=== PATIENT | female | born 1955 | race Caucasian/White ===

== ENCOUNTER 2018-03-25 06:55 | Inpatient (IN) ==
--- NOTE | 2018-03-24 20:12 | Discharge Summary ---
<JustinGisele colesBre L - Last Filed: 03/24/18 21:14> Date of Encounter: 03/24/18 - Discharge Diagnosis (1) Status post total knee replacement, left Priority: Primary Status: Acute (2) Arthritis of knee, left Priority: Primary Status: Acute (3) HTN (hypertension) Priority: Secondary Status: Chronic Qualifiers: Hypertension type: essential hypertension Qualified Code(s): I10 - Essential (primary) hypertension (4) DMII (diabetes mellitus, type 2) Priority: Secondary Status: Chronic Qualifiers: Diabetes mellitus assisted insulin use: unspecified assisted insulin use status Diabetes mellitus complication status: with unspecified complications Qualified Code(s): E11.8 - Type 2 diabetes mellitus with unspecified complications (5) CE (obstructive sleep apnea) Priority: Secondary Status: Chronic (6) CHF (congestive heart failure) Priority: Secondary Status: Chronic Qualifiers: Heart failure type: unspecified Heart failure chronicity: chronic Qualified Code(s): I50.9 - Heart failure, unspecified (7) COPD (chronic obstructive pulmonary disease) Priority: Secondary Status: Chronic Qualifiers: COPD type: unspecified COPD Qualified Code(s): J44.9 - Chronic obstructive pulmonary disease, unspecified (8) Obesity Priority: Secondary Status: Chronic Qualifiers: Obesity type: due to excess calories Obesity classification: adult class 3 (BMI >= 40) Serious obesity comorbidity presence: without serious comorbidity Body mass index: BMI 40.0-44.9 Qualified Code(s): E66.01 - Morbid (severe) obesity due to excess calories; Z68.41 - Body mass index (BMI) 40.0-44.9, adult (9) Codeine allergy Priority: Secondary Status: Chronic - Hospital Course Hospital course: Ms. Sharma is a 63 year old female - Time Spent with Patient Total time spent providing and/or coordinating discharge services: - Discharge Medications Home Medications: Aspirin Enteric Coated [Aspirin EC] 325 mg PO BID #20 tablet. 03/24/18 [Rx] OxyCODONE Immed Rel [Roxicodone 5 MG] 5 mg PO Q6HR PRN 7 Days #28 tablet [Rx] Albuterol Sulfate [Proventil Hfa] 2 puff IH Q4H 03/25/18 [History] Atorvastatin [Lipitor] 40 mg PO HS 03/25/18 [History] Carvedilol [Coreg] 25 mg PO BID 03/25/18 [History] Citalopram Hydrobromide [Citalopram HBr] 20 mg PO DAILY 03/25/18 [History] Doxycycline Hyclate 100 mg PO DAILY 03/25/18 [History] Ferrous Gluconate 324 mg PO QAM 03/25/18 [History] Furosemide [Lasix] 40 mg PO DAILY 03/25/18 [History] Ipratropium/Albuterol Sulfate [Iprat-Albut 0.5-3(2.5) mg/3 ml] 3 ml IH QID 03/25 [History] Lisinopril [Zestril] 20 mg PO DAILY 03/25/18 [History] Multivitamin [Multivitamins] 1 each PO DAILY 03/25/18 [History] Sitagliptin Phos/Metformin HCl [Janumet 50-1,000 mg Tablet] 1 tab PO DAILY 03/25 [History] Tramadol HCl [Ultram] 50 mg PO BID PRN 03/25/18 [History] Trazodone HCl 150 mg PO DAILY 03/25/18 [History] Triamcinolone Acetonide [Nasacort] 1 spray NS DAILY 03/25/18 [History] Zolpidem [Ambien] 10 mg PO HS PRN 03/25/18 [History] Allergies/Adverse Reactions: 3 Allergy/AdvReac Type Severity Reaction Status Date / Time codeine Allergy swelling Verified 03/25/18 09:12 Penicillins Allergy Swelling Verified 03/25/18 09:12 onabotulinumtoxinA AdvReac Nausea & Verified 03/25/18 09:12 [From Botox] vomiting Primary care physician: Acacia Davis MD - Patient Status Disposition: Home Health Service Condition: Good - Discharge Instructions Instructions: Total Knee Replacement (DC), Precautions after Total Joint Replacement Surgery (DC) Follow Up With: Acacia Davis MD [Primary Care Provider] - Americo Monroe MD [Partnered Physician] - Bre Zimmerman PAC [Physician Patient Portal Concierge] - Additional Instructions: Opsite dressing, leave intact until first post-operative visit. If dressing becomes >50% saturated, contact office, remove dressing and place appropriate dressing in its place. Do not allow for dressing to get wet. Zipline/Blake in place, plan to remove at post-operative day #14-16. Total Joint Precautions x 6 weeks Apply cold therapy wrap 3-6x/day for 20 minutes at a time. Encourage ambulation throughout the day Use Incentive spirometer 10x/hour. Elevate affected extremity above heart as tolerated. Brace: Wear knee immobilizer at night x 2 weeks. <Americo Monroe - Last Filed: 03/27/18 11:21> Orders not resulted at time of discharge: Pending orders 03/25/18 00:01 XR knee LT limited 1-2V [XR] Routine H/H [Hemoglobin and Hematocrit] [HEME] Routine Date of Encounter: 03/27/18 - Discharge Diagnosis (1) Obesity (BMI 35.0-39.9 without comorbidity) Priority: Secondary Status: Chronic (2) Arthritis of knee, left Priority: Primary Status: Chronic (3) Status post total knee replacement, left Priority: Primary Status: Acute (4) CHF (congestive heart failure) Priority: Secondary Status: Chronic Qualifiers: Heart failure type: diastolic Heart failure chronicity: chronic Qualified Code(s): I50.32 - Chronic diastolic (congestive) heart failure (5) COPD (chronic obstructive pulmonary disease) Priority: Secondary Status: Chronic Qualifiers: COPD type: unspecified COPD Qualified Code(s): J44.9 - Chronic obstructive pulmonary disease, unspecified (6) Codeine allergy Priority: Secondary Status: Chronic (7) DMII (diabetes mellitus, type 2) Priority: Secondary Status: Chronic Qualifiers: Diabetes mellitus assisted insulin use: unspecified rat exterminator insulin use status Diabetes mellitus complication status: with unspecified complications Qualified Code(s): E11.8 - Type 2 diabetes mellitus with unspecified complications (8) HTN (hypertension) Priority: Secondary Status: Chronic Qualifiers: Hypertension type: essential hypertension Qualified Code(s): I10 - Essential (primary) hypertension (9) CE (obstructive sleep apnea) Priority: Secondary Status: Chronic - Hospital Course Hospital course: Ms. Sharma is a 63 year old female - Time Spent with Patient Total time spent providing and/or coordinating discharge services: Primary care physician: Acacia Davis MD <Nel Peck - Last Filed: 03/27/18 17:41> Orders not resulted at time of discharge: Pending orders 03/25/18 09:10 US anesthesia pain block [US] Stat 03/25/18 12:31 US anesthesia pain block [US] Routine Date of Encounter: 03/27/18 Time of Encounter: 12:40 - Discharge Diagnosis (1) Status post total knee replacement, left Priority: Primary Status: Acute (2) Acute blood loss anemia Priority: Secondary Status: Acute (3) Arthritis of knee, left Priority: Primary Status: Chronic (4) CHF (congestive heart failure) Priority: Secondary Status: Chronic Qualifiers: Heart failure type: diastolic Heart failure chronicity: chronic Qualified Code(s): I50.32 - Chronic diastolic (congestive) heart failure (5) COPD (chronic obstructive pulmonary disease) Priority: Secondary Status: Chronic Qualifiers: COPD type: unspecified COPD Qualified Code(s): J44.9 - Chronic obstructive pulmonary disease, unspecified (6) Codeine allergy Priority: Secondary Status: Chronic (7) DMII (diabetes mellitus, type 2) Priority: Secondary Status: Chronic Qualifiers: Diabetes mellitus assisted insulin use: unspecified assisted insulin use status Diabetes mellitus complication status: with unspecified complications Qualified Code(s): E11.8 - Type 2 diabetes mellitus with unspecified complications (8) HTN (hypertension) Priority: Secondary Status: Chronic Qualifiers: Hypertension type: essential hypertension Qualified Code(s): I10 - Essential (primary) hypertension (9) CE (obstructive sleep apnea) Priority: Secondary Status: Chronic (10) Obesity (BMI 35.0-39.9 without comorbidity) Priority: Secondary Status: Chronic - Hospital Course Hospital course: Ms. Sharma is a 63 year old female s/p Left robotic-assisted Total knee replacement 03/25/18 with history of DMT2, HTN, CE, CHF, COPD, obesity who had uneventful hospital course. She participated in therapy and is stable for discharge. Patient seen at bedside, without complaints. A&O x 3 Afebrile, vital signs stable. dressings c/d/i. no calf tenderness to palpation. Labs reviewed. H/H - 8.8/26.9 asymptomatic Pain control: better with the addition of tylenol and flexeril yesterday. Participating in PT. All questions and concerns addressed. Educated on use of incentive spirometer. Encouraged ambulation and proper hydration. Patient educated on post-operative restrictions and post-operative care. Assessment and plan: Continue with postoperative care Discharge plan: home therapy DC today - Time Spent with Patient Total time spent providing and/or coordinating discharge services: Date of admission: 03/25/18 12:29 Primary care physician: Acacia Davis MD Consults: 03/25/18 12:31 Consult to Orthopedic Navigator [CONS] [CONS] Routine Consult to Physical Therapy [CONS] Routine Comment: Evaluate, develop and impliment POC Reason for Consult: post knee surgery Does patient have active BEDREST order?: No Is patient medically & hemodynamically stable?: Yes Consult to Earth Moving Machine Operator [CONS] Routine Reason for SW Consult: post op joint replacement RT Post Op Consult [CONS] Routine Discharging clinician: Americo Monroe Anticipated date of discharge: 03/27/18 Labs on day of discharge: Labs from last 24 hours 03/27/18 03/27/18 03/26/18 00:28 00:28 21:00 Hgb 8.7 L Hct 26.9 L Sodium 134 L Potassium 3.9 Chloride 101 Carbon Dioxide 26 BUN 16 Creatinine 0.91 Est GFR ( Amer) > 60 Est GFR (Non-Af Amer) > 60 BUN/Creatinine Ratio 18 Glucose 157 H POC Glucose 163 H Calculated Osmolality 282 Calcium 8.6 03/26/18 15:54 Hgb Hct Sodium Potassium Chloride Carbon Dioxide BUN Creatinine Est GFR ( Amer) Est GFR (Non-Af Amer) BUN/Creatinine Ratio Glucose POC Glucose 128 H Calculated Osmolality Calcium - Impressions ITS Impressions Knee X-Ray 03/25/18 00:01 IMPRESSION: 1. Left knee arthroplasty with no immediate complications. D/ / Anoop Escobar MD / Anoop Escobar MD Interpreting Provider: Anoop Escobar MD - Patient Status Functional capacity at discharge: uses cane/walker Overall status at discharge: patient is back to baseline - Diet and Activity Activity: as per physical therapy Diet: advance to your usual diet
--- NOTE | 2018-03-25 07:58 | History & Physical Report ---
Date of Encounter: 03/25/18 Time of Encounter: 07:58 24 Hour HP Update - Instructions Instructions: If the History and Physical is less than 30 days old and was completed prior to A.M. admission and or procedure and has NOT been updated on calendar day of procedure please complete this update prior to performing procedure. - Update Patient reports changes in Medical Condition: No Changes in examination, assessment, or condition: No Changes in Medication: No Preop tests/diagnostics Reviewed: Yes Surgery Remains Indicated: Yes Consent for Planned Operative Procedure(s) Verified: Yes - Pre-Operative Checklist Preoperative Checklist Indicated: No Prophylactic Antibiotic Ordered: Yes Is VTE Prophylaxis Indicated?: Yes
[2018-03-25] MEDS ORDERED: ROPIVACAINE HCL/PF 0.5% 30 ML VIAL ONE ×2 (08:06→08:51)
[2018-03-25] MEDS ORDERED: Clindamycin 900 MG/50 ML 900 MG/50 ML IV.SOLN IVPB ONE ×2 (08:12→09:28)
[2018-03-25] MEDS ORDERED: Albuterol 2.5 MG/3 ML NEBULIZER IH ONE (08:12)
[2018-03-25] MEDS ORDERED: *HR* Midazolam HCl 2 MG/2 ML VIAL ONE (08:15)
[2018-03-25] MEDS ORDERED: *HR* Propofol 200 MG/20 ML VIAL IVP ONE (08:15)
[2018-03-25] MEDS ORDERED: *HR* FentaNYL (PF) 100 MCG/2 ML VIAL ONE (08:15)
[2018-03-25] MEDS ORDERED: Acetaminophen IV 1,000 MG/100 ML INFUS..BTL IVPB ONE (08:18)
[2018-03-25] MEDS ORDERED: Famotidine 20 MG/2 ML VIAL IVP ONE (08:18)
[2018-03-25] MEDS ORDERED: Celecoxib 200 MG CAPSULE PO ONE (08:18)
[2018-03-25] MEDS ORDERED: Pregabalin 75 MG CAPSULE PO ONE (08:18)
--- NOTE | 2018-03-25 08:31 | Anesthesia Evaluation PreOp ---
Date of Encounter: 03/25/18 Time of Encounter: 08:30 - Past History Planned Operation: Left TKA Cardiac History: CHF (EF 40%), HTN, Hyperlipidemia, Cardiac Surgery (CABG X4 2011) Pulmonary History: COPD, CE Dx ERP PROJECT MANAGER History: Denies Any Significant HX Other Medical History: Diabetes Type II Anesthesia History: No Prior Anesthetic Complications : No Alcohol Use: none Drug use: none Medications and Allergies Aspirin Enteric Coated [Aspirin EC] 325 mg PO BID #20 tablet. 03/24/18 [Rx] OxyCODONE Immed Rel [Roxicodone 5 MG] 5 mg PO Q6HR PRN 7 Days #28 tablet [Rx] 3 Allergy/AdvReac Type Severity Reaction Status Date / Time codeine Allergy swelling Verified 03/13/18 16:19 Penicillins Allergy Swelling Verified 03/13/18 16:18 onabotulinumtoxinA AdvReac Nausea & Verified 03/13/18 16:19 [From Botox] vomiting - Meds/Allergy Pre-op Review Medications Reviewed: Yes Allergies Reviewed: Yes Beta Blockers on Current Med List: Yes (on Coreg) Anesthesia Results - Labs Laboratory Tests 03/13/18 03/13/18 16:30 16:30 Hgb 13.2 Hct 41.4 Plt Count 205 Sodium 139 Potassium 4.3 BUN 19 Creatinine 0.87 - Imaging EKG: report reviewed (ST) Additional studies: 2014 ECHO EF 40% Anesthesia Exam O2 Sat Height 1.65 m Height 1.65 m Height 1.65 m Height 1.65 m Weight 108.862 kg Weight 108.862 kg Weight 108.862 kg Weight 108.862 kg O2 Sat by Pulse Oximetry 93 O2 Sat by Pulse Oximetry 93 Vital Signs Temp Pulse Resp BP Pulse Ox 983 F H 87 18 137/84 93 03/25/18 07:41 03/25/18 07:41 03/25/18 07:41 03/25/18 07:41 03/25/18 07:41 Height: 5'5 Weight: 240 lbs NPO (# of Hours): MN Pain Scale: 0 - HEENT Pupil (Motor): Pupils equal, EOMI Mallampati: III Teeth: Missing Oral Opening: Less than or equal to 3 - ERP PROJECT MANAGER LOC: Oriented ERP PROJECT MANAGER Motor: Normal RUE, Normal LUE, Normal RLE, Normal LLE, Normal Face ERP PROJECT MANAGER Sensory: Normal: RUE, LUE, RLE, LLE, Face - Cardiac Rhythm: Regular Murmur: None JVD: No Carotid Bruit: No - Pulmonary Breath Sounds: bilateral Clear Respiratory Effort: Symmetrical Anesthesia Assess/Plan ASA Score: 4 (HTN CAD Cardiomyopathy DM COPD) Modified Canby Scale for Level of Consciousness: Cooperative, oriented, and tranquil Anesthetic Plan: General, Regional Monitoring Plan: Standard Monitors Recovery Plan: PACU (Discussed GA and RA, agrees to proceed)
[2018-03-25] MEDS ORDERED: Celecoxib 100 MG CAPSULE PO ONE (08:45)
[2018-03-25] MEDS: Ringers Solution, Lactated 1,000 ML IVC SCH ×3 (08:47→20:26)
[2018-03-25] MEDS ORDERED: KETAMINE HCL 50 MG/ML SYRINGE IV ONE (08:50)
[2018-03-25] MEDS ORDERED: Ethanol\\Acetic Acid\\Na Ace\\Ben 1,000 ML IRRIG.SOLN IR ONE (09:01)
[2018-03-25] MEDS ORDERED: Dexamethasone 4 MG/ML VIAL ONE ×2 (09:09→09:43)
--- NOTE | 2018-03-25 09:38 | Anesthesia Procedures ---
Date of Encounter: 03/25/18 Time of Encounter: 09:36 Procedures: Anesthesia - Nerve Block Procedure Date: 03/25/18 Time: 09:36 Allergies/Adv Reactions: PCN, Codeine, Botox Pre-op Diagnosis: Osteoarthritis Left Knee Surgical Procedure: Robotic Left TKA Checklist: Correct Patient Identifier, Correct procedure, History checked Correct side: Left Blood Thinner: No Monitor Applied: EKG, BP, Pulse Oximetry Supplemental Oxygen via Nasal Cannula (L/min): 2 Sedation: Versed (mg): 2 Sedation: Fentanyl (mcg): 2 Indication: Post Op Analgesia Pre-op Neuro Deficits: No Block Type: Other (Adductor Canal; I Pack; & Anterior Infiltration Block (MOISES block)) Catheter placed: No Sterile Technique: Yes Ultrasound used: Yes Anatomy identified: Yes Visual spread of Local: Yes Neuro Stimulation: No Blood on Needle Aspiration: No Smooth Injection of Local: Yes Pain with Injection of Local: No Prep: Chlorhexadine Needle: 21 x 100 mm Stimuplex Local: Ropivacaine (30 ml Ropivacaine 0.5% with decadron 8mg used for adductor canal block; 20 ml Ropivacaine 0.5% for IPACK; & 10ml Ropivacaine 0.5% for MOISES block) Volume (cc): 30ml Adductor; 20ml IPACK Number of Attempts: 1 Complications: None/effective block Vitals: Vital Signs/O2 Sat/Glucose, Most Recent Temp Pulse Resp BP Pulse Ox 98.1 F 86 16 158/97 92 03/25/18 08:23 03/25/18 09:05 03/25/18 09:05 03/25/18 09:05 03/25/18 09:05 Blood Glucose* 143
[2018-03-25] MEDS ORDERED: Ondansetron 4 MG/2 ML VIAL ONE (09:43)
[2018-03-25] MEDS ORDERED: *HR* Magnesium Sulfate 1 GM/2 ML VIAL ONE (09:45)
[2018-03-25] MEDS ORDERED: *HR* Morphine 10 MG/ML VIAL ONE (09:54)
[2018-03-25] MEDS ORDERED: *HR* Metoprolol 5 MG/5 ML VIAL IVP ONE (09:58)
[2018-03-25] MEDS ORDERED: *HR* OxyCODONE Immed Rel 5 MG TABLET PO PRN (10:29)
[2018-03-25] MEDS ORDERED: *HR* Promethazine 25 MG/ML VIAL IVP PRN (10:29)
[2018-03-25] MEDS ORDERED: *HR* Labetalol 20 MG/4 ML SYRINGE IVP PRN (10:29)
--- NOTE | 2018-03-25 10:32 | Orthopedic Operative Note ---
Date of procedure: 03/25/18 Pre-op diagnosis: Left knee arthritis Post-op diagnosis: same Procedure: Procedure: Left robotic-assisted Total knee replacement Estimated blood loss: 200 cc Hardware: Metal and polyethylene replacement. [place] Femur: 2 Tibia: 3 TS insert: 13 Patella: 36 Exam Under anesthesia: 6 degree varus 1 degree hyperextension as calculated by the robot full flexion and no instability Procedural Notes: Grade 4 arthritic changes all 3 compartments. Operative procedure: The patient was brought to the operating room and placed on the operating room table. After general anesthesia was administered the operative knee was examined. Findings were noted in the exam under anesthesia. The operative extremity was prepped and draped in sterile surgical fashion. The patient received IV antibiotics prior to skin incision. A standard midline incision was made centered over the patella. The incision was made through the skin and subcutaneous tissue. A medial parapatellar tendon approach was performed. Care was taken to preserve tissue along the medial aspect of the patella. And to protect the patella tendon. The deep MCL was released off the medial tibia. The infra patella fat pad was excised. The patella was everted and cut was made at the level of the insertion of the quadriceps and patella tendon. The patella was sized to a 36 the guide was seated and the lug holes are drilled. Knee was brought into flexion. Patient noted to have grade 4 arthritic changes all 3 compartments. Steinmann pins were placed in the tibia and the femur for the tibial and femoral arrays respectively. Checkpoints were also placed in the tibia and the femur for calculation purposes. The knee including the femur and the tibial registered. Osteophytes, ACL and PCL were excised at this point. Extension and flexion were assessed with a valgus stress components were adjusted on the computer to balance the knee. Femoral cuts were made first with robotic assistance, these included the anterior cut posterior cuts chamfer cuts. Tibial cut was then performed with robotic assistance as well. Bone fragments were removed, as well as the medial and lateral meniscus. The size 2 femoral guide was seated box cut was made lug holes are drilled. The size 3 tibial tray was seated and prepared with the fin cutter. Trial reduction with the 13 PS Eva revealed extension of 0 degree and 1 degree varus full flexion. No varus valgus instability. Trial reduction revealed excellent patella tracking. All trial components were removed all bony surfaces were irrigated. The Tibia was seated followed by the femur, The Eva size 13 was seated and secured patella. Patient had similar findings for motion and stability. The knee was closed by the PA. The knee was then irrigated out with 2 L of pulse irrigation. The extensor mechanism was closed with #2 FiberWire suture and #2 PDS suture. The subcutaneous tissue was then irrigated and closed deep with #1 PDS suture superficially with 0 PDS suture and skin was closed with zip tie The patient was then placed in a sterile dressing and a postoperative brace extubated and transferred to recovery room in stable condition. Anesthesia: GETA Surgeon: Americo Monroe Was there an music assistant present: No Estimated blood loss (cc): 200 Condition: stable Disposition: PACU
[2018-03-25] MEDS ORDERED: *HR* PHENYLEPHRINE 1,000 MCG/10 ML SYRINGE IVP ONE (11:03)
[2018-03-25] MEDS: *HR* HYDROmorphone (PF) 1 MG/ML SYRINGE IVP PRN ×2 (11:22→11:27)
[2018-03-25 11:29] LABS: Hematocrit 37.5 % (35.3-44.9); Hemoglobin 11.9 g/dL (11.5-15.4)
--- NOTE | 2018-03-25 12:20 | Anesthesia Evaluation Post Op ---
Date of Encounter: 03/25/18 Time of Encounter: 12:20 - Vital Signs Vital Signs: Vital Signs/O2 Sat/Glucose, Most Current Temp Pulse Resp BP Pulse Ox 03/25/18 12:04 71 14 104/61 96 03/25/18 11:54 72 12 115/66 96 03/25/18 11:44 97.7 F 73 12 105/62 94 03/25/18 11:34 73 12 107/66 94 03/25/18 11:24 76 18 116/76 94 03/25/18 11:14 71 16 149/78 96 03/25/18 11:04 98.7 F 75 16 162/82 98 03/25/18 09:05 86 16 158/97 92 03/25/18 08:23 98.1 F 87 18 137/84 93 - Lungs Lungs: Clear Ascult./Percussion - Airway Airway: Non-obstructed - Cardiovascular Regular Rate - Mental Status Mental Status: Alert & Oriented, Answers Appropriately - Pain Pain Scale: 0 - Nausea Vomiting Nausea Vomiting: Not Present - Hydration Hydration: Ice chips - Discharge PostOp Status: Transfer Patient to floor
[2018-03-25] MEDS ORDERED: Ondansetron 4 MG/2 ML VIAL IVP PRN (12:31)
[2018-03-25] MEDS ORDERED: Dextrose Gel 15 GM/37.5 ML TUBE PO PRN ×2 (12:31)
[2018-03-25] MEDS ORDERED: D5% in Water 1,000 ML IVC PRN (12:31)
[2018-03-25] MEDS ORDERED: *HR* Dextrose 50 % in Water (Syg) 50 ML SYRINGE IVP PRN (12:31)
[2018-03-25] MEDS ORDERED: Temazepam 15 MG CAPSULE PO PRN (12:31)
[2018-03-25] MEDS ORDERED: MOM Conc 10 ML UD.LIQ PO PRN (12:31)
[2018-03-25] MEDS ORDERED: traMADol 50 MG TABLET PO PRN (12:31)
[2018-03-25] MEDS ORDERED: Sennosides 8.6 MG TABLET PO PRN (12:31)
[2018-03-25] MEDS ORDERED: Naloxone 0.4 MG/ML INJ IVP PRN (12:31)
--- NOTE | 2018-03-25 15:32 | Physician Discharge Referral ---
<ErasmoGiseleBre L - Last Filed: 03/25/18 15:31> Home Health/Hosp Referral Info Transfer to: Home Health Attending Provider: Provider in Charge Post Discharge: PCP - Diagnosis (1) Status post total knee replacement, left Priority: Primary Status: Acute (2) Arthritis of knee, left Priority: Primary Status: Chronic (3) HTN (hypertension) Status: Chronic (4) DMII (diabetes mellitus, type 2) Status: Chronic (5) CE (obstructive sleep apnea) Status: Chronic (6) CHF (congestive heart failure) Status: Chronic (7) COPD (chronic obstructive pulmonary disease) Status: Chronic (8) Obesity Status: Chronic (9) Codeine allergy Status: Chronic - Respiratory Orders None Smoking Cessation: Smoking cessation has been advised. For more information, call the [place] Tobacco Quit Line at 8-232-QRMV-NOW. - Diet/Nutrition Diet/Nutrition Orders: Regular - Activity Activity Orders: Up ad kelly, Ambulate, Walker - Services Needed Following services are medically necessary services: Nursing, Home Health Aide, Physical Therapy, Occupational Therapy Home Care Orders: Opsite dressing, leave intact until first post-operative visit. If dressing becomes >50% saturated, contact office, remove dressing and place appropriate dressing in its place. Do not allow for dressing to get wet. Zipline in place, plan to remove at post-operative day #14-16. Total Joint Precautions x 6 weeks Apply cold therapy wrap 3-6x/day for 20 minutes at a time. Encourage ambulation throughout the day Use Incentive spirometer 10x/hour. Elevate affected extremity above heart as tolerated. Brace: Wear knee immobilizer at night until first post-operative appt. - Transfer Medications Home Medications: Aspirin Enteric Coated [Aspirin EC] 325 mg PO BID #20 tablet. 03/24/18 [Rx] OxyCODONE Immed Rel [Roxicodone 5 MG] 5 mg PO Q6HR PRN 7 Days #28 tablet [Rx] Albuterol Sulfate [Proventil Hfa] 2 puff IH Q4H 03/25/18 [History] Atorvastatin [Lipitor] 40 mg PO HS 03/25/18 [History] Carvedilol [Coreg] 25 mg PO BID 03/25/18 [History] Citalopram Hydrobromide [Citalopram HBr] 20 mg PO DAILY 03/25/18 [History] Doxycycline Hyclate 100 mg PO DAILY 03/25/18 [History] Ferrous Gluconate 324 mg PO QAM 03/25/18 [History] Furosemide [Lasix] 40 mg PO DAILY 03/25/18 [History] Ipratropium/Albuterol Sulfate [Iprat-Albut 0.5-3(2.5) mg/3 ml] 3 ml IH QID 03/25 [History] Lisinopril [Zestril] 20 mg PO DAILY 03/25/18 [History] Multivitamin [Multivitamins] 1 each PO DAILY 03/25/18 [History] Sitagliptin Phos/Metformin HCl [Janumet 50-1,000 mg Tablet] 1 tab PO DAILY 03/25 [History] Tramadol HCl [Ultram] 50 mg PO BID PRN 03/25/18 [History] Trazodone HCl 150 mg PO DAILY 03/25/18 [History] Triamcinolone Acetonide [Nasacort] 1 spray NS DAILY 03/25/18 [History] Zolpidem [Ambien] 10 mg PO HS PRN 03/25/18 [History] Allergies/Adverse Reactions: 3 Allergy/AdvReac Type Severity Reaction Status Date / Time codeine Allergy swelling Verified 03/25/18 09:12 Penicillins Allergy Swelling Verified 03/25/18 09:12 [email or web address] AdvReac Nausea & Verified 03/25/18 09:12 [From Botox] vomiting Certification: Further, I certify that my clinical findings support that this patient is homebound (i.e. absences from home require considerable and taxing effort and are for medical reasons or pentecostalism services or infrequently or short duration when for other reasons) because: Homebound Reason: Post-surgery restriction and or conditions limit ability to leave home Attestation: My signature below is to certify that this patient is under my care and that I, or nurse practitioner, or a physician's food and nutrition services assistant working with me, has a face-to -face encounter with this patient. <Nel Peck - Last Filed: 03/27/18 17:33> Home Health/Hosp Referral Info Transfer to: Home Health - Diagnosis (1) Status post total knee replacement, left Priority: Primary Status: Acute (2) Acute blood loss anemia Priority: Secondary Status: Acute (3) Arthritis of knee, left Priority: Primary Status: Chronic (4) CHF (congestive heart failure) Priority: Secondary Status: Chronic (5) COPD (chronic obstructive pulmonary disease) Priority: Secondary Status: Chronic (6) Codeine allergy Priority: Secondary Status: Chronic (7) DMII (diabetes mellitus, type 2) Priority: Secondary Status: Chronic (8) HTN (hypertension) Priority: Secondary Status: Chronic (9) CE (obstructive sleep apnea) Priority: Secondary Status: Chronic (10) Obesity (BMI 35.0-39.9 without comorbidity) Priority: Secondary Status: Chronic - Respiratory Orders None Smoking Cessation: Smoking cessation has been advised. For more information, call the [place] Tobacco Quit Line at 6-809-NYBRNOW. - Diet/Nutrition Diet/Nutrition Orders: Regular - Activity Activity Orders: Ambulate, Chair, Walker - Services Needed Following services are medically necessary services: Nursing, Home Health Aide, Physical Therapy, Occupational Therapy Certification: Further, I certify that my clinical findings support that this patient is homebound (i.e. absences from home require considerable and taxing effort and are for medical reasons or pentecostalism services or infrequently or short duration when for other reasons) because: Homebound Reason: Post-surgery restriction and or conditions limit ability to leave home Attestation: My signature below is to certify that this patient is under my care and that I, or nurse practitioner, or a physician food and nutrition services assistant working with me, has a face-to- face encounter with this patient.
[2018-03-25] MEDS: Insulin LISPRO 300 UNITS/3 ML VIAL SQ SCH ×3 (17:16→21:37)
[2018-03-25] MEDS: *HR* Enoxaparin 30 MG/0.3 ML SYRINGE SQ SCH (17:27)
[2018-03-25] MEDS: *HR* OxyCODONE/APAP 5/325 TABLET PO PRN (17:33)
[2018-03-25] MEDS ORDERED: Clindamycin 900 MG/50 ML 900 MG/50 ML IV.SOLN IVPB SCH (17:53)
[2018-03-25] MEDS ORDERED: *HR* Enoxaparin 30 MG/0.3 ML SYRINGE SQ SCH (18:00)
[2018-03-25] MEDS: Ipratropium/Albuterol Neb 3 ML IH SCH (23:47)
[2018-03-26 02:44] LABS: Hematocrit 30.8 % (35.3-44.9); Hemoglobin 9.7 g/dL (11.5-15.4)
[2018-03-26 03:03] LABS: BUN/Creatinine Ratio 15 (6-26); Blood Urea Nitrogen 11 mg/dL (8-23); Calcium 8.7 mg/dL (8.6-10.3); Carbon Dioxide 25 mEq/L (23-29); Chloride 105 mEq/L (98-107); Glucose 229 mg/dL (70-105); Osmolality,Calculated 287 (280-300); Potassium 4.8 mEq/L (3.5-5.1); Sodium 135 mEq/L (136-145); eGFR For Non-African Americans > 60 (> 60)
[2018-03-26] MEDS: Ringers Solution, Lactated 1,000 ML IVC SCH (03:31)
[2018-03-26] MEDS: *HR* OxyCODONE Immed Rel 5 MG TABLET PO PRN ×4 (03:36→21:55)
[2018-03-26] MEDS: Ipratropium/Albuterol Neb 3 ML IH SCH ×4 (03:43→20:29)
[2018-03-26] MEDS ORDERED: Clindamycin 900 MG/50 ML 900 MG/50 ML IV.SOLN IVPB SCH (04:00)
[2018-03-26] MEDS: *HR* Enoxaparin 30 MG/0.3 ML SYRINGE SQ SCH ×2 (05:15→17:47)
--- NOTE | 2018-03-26 06:54 | Orthopedics Progress Note ---
Date of Encounter: 03/26/18 Time of Encounter: 06:53 - Assessment and Plan (1) Obesity (BMI 35.0-39.9 without comorbidity) Current Visit: Yes Status: Chronic (2) Arthritis of knee, left Current Visit: No Status: Chronic (3) Status post total knee replacement, left Current Visit: No Status: Acute (4) CHF (congestive heart failure) Current Visit: No Status: Chronic Qualifiers: Heart failure type: unspecified Heart failure chronicity: chronic Qualified Code(s): I50.9 - Heart failure, unspecified (5) COPD (chronic obstructive pulmonary disease) Current Visit: No Status: Chronic Qualifiers: COPD type: unspecified COPD Qualified Code(s): J44.9 - Chronic obstructive pulmonary disease, unspecified (6) Codeine allergy Current Visit: No Status: Chronic (7) DMII (diabetes mellitus, type 2) Current Visit: No Status: Chronic Qualifiers: 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 Afebrile vital signs stable. Operative extremity: Neurovascularly intact Dressing clean dry and intact Calves nontender Assessment and plan: Continue with postoperative care Hemoglobin 9.7 Objective Vital signs: Vital Signs Temp Pulse Resp BP Pulse Ox 03/26/18 03:43 20 96 03/26/18 03:19 97.6 F 81 16 119/79 97 03/25/18 23:28 98.2 F 84 18 129/78 97 03/25/18 21:49 94 03/25/18 20:58 16 95 03/25/18 18:40 97.7 F 88 17 116/79 94 03/25/18 15:45 16 94 03/25/18 15:00 97.6 F 74 22 112/78 96 03/25/18 14:00 97.5 F L 72 20 138/78 96 03/25/18 13:01 97.8 F 75 16 114/77 94 03/25/18 12:33 97.8 F 73 16 102/69 95 03/25/18 12:30 97.8 F 81 20 102/69 95 03/25/18 12:04 71 14 104/61 96 03/25/18 11:54 72 12 115/66 96 03/25/18 11:44 97.7 F 73 12 105/62 94 03/25/18 11:34 73 12 107/66 94 03/25/18 11:24 76 18 116/76 94 03/25/18 11:14 71 16 149/78 96 03/25/18 11:04 98.7 F 75 16 162/82 98 03/25/18 09:05 86 16 158/97 92 03/25/18 08:23 98.1 F 87 18 137/84 93 03/25/18 07:41 98.1 F 87 18 137/84 93 Intake and Output 03/25/18 03/25/18 03/26/18 15:59 23:59 07:59 Intake Total 1000 / 1000 300 / 300 250 / 250 Output Total 100 / 100 800 / 800 350 / 350 Balance 900 / 900 -500 / -500 -100 / -100 Intake: IV Fluids 1000 / 1000 100 / 100 50 / 50 Lactated Ringers 1,000 ML @ 75 1000 / 1000 mls/hr IVC .[id number] [facility] Rx#: [id number] Cleocin Premix 900 MG/50 ML 900 100 / 100 50 / 50 mg In 50 ml @ 50 mls/hr IVPB Q8H [facility] Rx#:[id number] Oral 200 / 200 200 / 200 Output: Urine 800 / 800 350 / 350 Estimated Blood Loss 100 / 100 Other: # Voids 1 Weight 108.862 kg Blood Glucose* 167 287 - Labs CBC & BMP: 03/26/18 01:18 03/26/18 01:18 Labs: Abnormal lab results Hgb 9.7 g/dL (11.5-15.4) L D 03/26/18 01:18 Hct 30.8 % (35.3-44.9) L 03/26/18 01:18 Sodium 135 mEq/L (136-145) L 03/26/18 01:18 Glucose 229 mg/dL (70-105) H 03/26/18 01:18 POC Glucose 287 mg/dL (70-99) H 03/25/18 21:15 - VTE Documentation of Mechanical Device: Venous foot pump, device Consult Discharge Plan - Plan Referrals: Acacia Davis MD [Primary Care Provider] -
[2018-03-26] MEDS: *HR* Metformin 500 MG TABLET PO SCH (08:12)
[2018-03-26] MEDS: Doxycycline 100 MG CAPSULE PO SCH (08:13)
[2018-03-26] MEDS: *HR* SitaGLIPtin 25 MG TABLET PO SCH (08:13)
[2018-03-26] MEDS: Lisinopril 20 MG TABLET PO SCH (08:13)
[2018-03-26] MEDS: Insulin LISPRO 300 UNITS/3 ML VIAL SQ SCH ×4 (08:13→21:06)
[2018-03-26] MEDS: Multivit/Ca/Min/Fe/FA 1 TAB TABLET PO SCH (08:13)
[2018-03-26] MEDS: Furosemide 40 MG TABLET PO SCH (08:13)
[2018-03-26] MEDS: *HR* OxyCODONE/APAP 5/325 TABLET PO PRN (12:26)
[2018-03-26] MEDS: Fluticasone Propionate Nasal 50 MCG/SPRAY BOTTLE NS SCH (13:13)
[2018-03-26] MEDS ORDERED: Acetaminophen IV 1,000 MG/100 ML INFUS..BTL IVPB PRN (13:19)
[2018-03-26] MEDS ORDERED: Acetaminophen IV 1,000 MG/100 ML INFUS..BTL IVPB SCH (18:00)
--- NOTE | 2018-03-26 19:54 | Event Note ---
Date of Encounter: 03/26/18 Time of Encounter: 12:40 PCR - POD#1 s/p Left robotic-assisted Total knee replacement 03/25/18 Patient seen at bedside, without complaints. A&O x 3 Afebrile, vital signs stable. dressings c/d/i. no calf tenderness to palpation. Labs reviewed. H/H - 9.7/30.8 stable, asymptomatic Pain control: inadequate. will add tylenol and flexeril Participating in PT. All questions and concerns addressed. Educated on use of incentive spirometer. Encouraged ambulation and proper hydration. Patient educated on post-operative restrictions and post-operative care. Assessment and plan: Continue with postoperative care Discharge plan: plan for home therapy with possible DC tomorrow
[2018-03-26] MEDS ORDERED: traZODone 50 MG TABLET PO SCH (21:00)
[2018-03-27 00:53] LABS: Hematocrit 26.9 % (35.3-44.9); Hemoglobin 8.7 g/dL (11.5-15.4)
[2018-03-27 01:53] LABS: BUN/Creatinine Ratio 18 (6-26); Blood Urea Nitrogen 16 mg/dL (8-23); Calcium 8.6 mg/dL (8.6-10.3); Carbon Dioxide 26 mEq/L (23-29); Chloride 101 mEq/L (98-107); Glucose 157 mg/dL (70-105); Osmolality,Calculated 282 (280-300); Potassium 3.9 mEq/L (3.5-5.1); Sodium 134 mEq/L (136-145); eGFR For Non-African Americans > 60 (> 60)
[2018-03-27] MEDS: Ipratropium/Albuterol Neb 3 ML IH SCH ×2 (04:04→10:41)
[2018-03-27] MEDS: *HR* Enoxaparin 30 MG/0.3 ML SYRINGE SQ SCH (05:40)
--- NOTE | 2018-03-27 08:09 | Orthopedics Progress Note ---
Date of Encounter: 03/27/18 Time of Encounter: 08:09 - Assessment and Plan (1) Obesity (BMI 35.0-39.9 without comorbidity) Current Visit: Yes Status: Chronic (2) Arthritis of knee, left Current Visit: No Status: Chronic (3) Status post total knee replacement, left Current Visit: No Status: Acute (4) CHF (congestive heart failure) Current Visit: No Status: Chronic Qualifiers: Heart failure type: unspecified Heart failure chronicity: chronic Qualified Code(s): I50.9 - Heart failure, unspecified (5) COPD (chronic obstructive pulmonary disease) Current Visit: No Status: Chronic Qualifiers: COPD type: unspecified COPD Qualified Code(s): J44.9 - Chronic obstructive pulmonary disease, unspecified (6) Codeine allergy Current Visit: No Status: Chronic (7) DMII (diabetes mellitus, type 2) Current Visit: No Status: Chronic Qualifiers: 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 Afebrile vital signs stable. Operative extremity: Neurovascularly intact Dressing clean dry and intact Calves nontender Assessment and plan: Continue with postoperative care Hemoglobin 8.7 asymptomatic Objective Vital signs: Vital Signs Temp Pulse Resp BP Pulse Ox 03/27/18 07:35 93 03/27/18 07:10 98.3 F 74 16 128/67 98 03/27/18 04:14 98 F 66 17 122/61 98 03/27/18 01:03 98.2 F 75 16 113/68 98 03/26/18 20:54 98 F 84 16 109/65 96 03/26/18 20:24 18 98 03/26/18 16:13 16 97 03/26/18 15:49 97.9 F 78 15 111/58 96 03/26/18 11:33 16 97 03/26/18 10:51 97.7 F 74 16 169/75 97 Intake and Output 03/26/18 03/27/18 03/27/18 23:59 07:59 15:59 Intake Total 100 / 100 150 / 150 Output Total 550 / 550 700 / 700 Balance -450 / -450 -550 / -550 Intake: Oral 100 / 100 150 / 150 Output: Urine 550 / 550 700 / 700 Other: # Voids 1 1 Weight 108.4 kg Blood Glucose* 163 167 Patient Weight 03/27/18 23:59 Weight 108.4 kg - Labs CBC & BMP: 03/27/18 00:28 03/27/18 00:28 Labs: Abnormal lab results Hgb 8.7 g/dL (11.5-15.4) L 03/27/18 00:28 Hct 26.9 % (35.3-44.9) L 03/27/18 00:28 Sodium 134 mEq/L (136-145) L 03/27/18 00:28 Glucose 157 mg/dL (70-105) H 03/27/18 00:28 POC Glucose 163 mg/dL (70-99) H 03/26/18 21:00 - VTE Documentation of Mechanical Device: Venous foot pump, device Consult Discharge Plan - Plan Referrals: Acacia Davis MD [Primary Care Provider] -
[2018-03-27] MEDS: Lisinopril 20 MG TABLET PO SCH (08:23)
[2018-03-27] MEDS: *HR* Metformin 500 MG TABLET PO SCH (08:23)
[2018-03-27] MEDS: Furosemide 40 MG TABLET PO SCH (08:23)
[2018-03-27] MEDS: Multivit/Ca/Min/Fe/FA 1 TAB TABLET PO SCH (08:23)
[2018-03-27] MEDS: *HR* SitaGLIPtin 25 MG TABLET PO SCH (08:23)
[2018-03-27] MEDS: Doxycycline 100 MG CAPSULE PO SCH (08:23)
[2018-03-27] MEDS: *HR* OxyCODONE Immed Rel 5 MG TABLET PO PRN (08:24)
[2018-03-27] MEDS: Insulin LISPRO 300 UNITS/3 ML VIAL SQ SCH ×2 (08:33→11:50)
[2018-03-27] MEDS: Fluticasone Propionate Nasal 50 MCG/SPRAY BOTTLE NS SCH (09:58)
[2018-03-27 10:56] VITALS: BP 134/76
== END 2018-03-27 13:47 | disposition home health service (06) | DRG 470 ==
LOC: SAMDAY 06:55 → 3NENU 12:29
PROVIDERS: ADMIT Orthopaedic Surgery; ATTEND Orthopaedic Surgery